=== PATIENT | female | born 1985 | race Caucasian/White ===

== ENCOUNTER 2021-03-13 06:37 | Day surgery (SDC) | payer MEDICAID, SELFPAY ==
[~2021-03-13] VITALS: Ht 175.3 cm; Wt 74.8 kg
[2021-03-13 07:03] LABS: HCG,QUAL RESULT NEGATIVE (NEGATIVE)
[2021-03-13] MEDS ORDERED: SIMETHICONE 40 MG/0.6 ML ML ONE (07:30)
[2021-03-13] MEDS ORDERED: fentaNYL CITRATE/PF 100 MCG/2 ML AMP ONE (07:30)
[2021-03-13] MEDS ORDERED: MIDAZOLAM HCL 5 MG/5 ML VIAL ONE (07:31)
[2021-03-13 11:57] VITALS: BP_SYST 110
== END 2021-03-13 09:32 | disposition home or self-care (01) ==
LOC: SDS 06:37 → SMU 06:37 → SDS 09:32
PROVIDERS: ATTEND Internal Medicine
DX: K62.5 Hemorrhage of anus and rectum (principal); R19.4 Change in bowel habit; K64.8 Other hemorrhoids; Z87.891 Personal history of nicotine dependence
CPT/HCPCS: 36415; 45378; 84703; 87426; 96365; 99152; G0378; J2250; J3010; J7030; J7120